=== PATIENT | female | born 1935 | race Caucasian/White ===

== ENCOUNTER → 2018-03-18 00:15 | Outpatient (CLI) | payer MEDICARE, OTHER, SELFPAY ==
--- NOTE | 2018-03-18 12:06 | DI.REPORT_ITS ---
SYMPTOMS/DIAGNOSIS: THYROID NODULE, BENIGN, E04.1 THYROID ULTRASOUND: Comparison is made with [id number]. There has been no significant change in size or appearance of the previously noted partially cystic and solid hyperemic mass in the upper to mid right lobe of the thyroid. It measures 2.9 x 1.7 x 1.8 cm. A 2 mm cyst is seen in the upper pole of the right lobe of the thyroid. The left lobe is normal in size and measures 2.8 x 0.9 x 1.5 cm. The isthmus appears normal. IMPRESSION: No significant change in size or appearance of the previously noted right thyroid nodule.
== END ==
PROVIDERS: PCP Internal Medicine; Visit Provider Internal Medicine
DX: E04.1 Nontoxic single thyroid nodule (principal)
CPT/HCPCS: 76536